=== PATIENT | male | born 1980 | race Caucasian/White ===

== ENCOUNTER 2017-03-27 21:17 | Emergency (ER) | payer OTHER ==
[2017-03-27 21:28] VITALS: BP 126/89; PULSE 79; TEMP 98.3; O2SAT 97
[2017-03-27] MEDS ORDERED: Amoxicillin-Clav 875-125 mg Tab PO STA (21:35)
--- NOTE | 2017-03-27 21:39 | C.PDOC ---
History Of Present Illness Patient reports 1 month history of persistent nasal congestion. Patient reports that the symptoms worsened and is now associated with facial pressure. Patient tried OTN medications without relief. Denies fever, trauma, vomiting, neck pain , SOB, chest pain. Time Seen by Provider: 03/27/17 21:27 Chief Complaint (Nursing): Cough, Cold, Congestion History Per: Patient History/Exam Limitations: no limitations Onset/Duration Of Symptoms: Persistent Current Symptoms Are (Timing): Still Present Severity: Mild Past Medical History Vital Signs: Last Vital Signs Temp 98.3 F 03/27/17 21:22 Pulse 79 03/27/17 21:22 Resp 22 03/27/17 21:22 BP 126/89 03/27/17 21:22 Pulse Ox 97 03/27/17 21:22 - Medical History PMH: No Chronic Diseases Surgical History: No Surg Hx Family History: States: No Known Family Hx - Social History Hx Alcohol Use: Yes Hx Substance Use: No - Immunization History Hx Tetanus Toxoid Vaccination: Yes Hx Influenza Vaccination: No Hx Pneumococcal Vaccination: Yes Review Of Systems Except As Marked, All Systems Reviewed And Found Negative. Physical Exam - Physical Exam Appears: Well, No Acute Distress Skin: Normal Color, Warm Head: Atraumatic, Normacephalic Eye(s): bilateral: Normal Inspection, PERRL, EOMI Ear(s): Bilateral: Normal Nose: Other ((+) bilateral maxillary sinus tenderness and minimal swelling) Oral Mucosa: Moist Tongue: Normal Appearing Lips: Normal Appearing Throat: No Erythema, No Exudate Neck: Normal ROM, Supple Chest: Symmetrical, No Tenderness Cardiovascular: Rhythm Regular, No Friction Rub, No Murmur Respiratory: Normal Breath Sounds, No Rhonchi Back: Normal Inspection Extremity: Normal ROM, No Swelling Neurological/Psych: Oriented x3, Normal Speech, Normal Cranial Nerves Gait: Steady ED Course And Treatment O2 Sat by Pulse Oximetry: 97 (on RA) Pulse Ox Interpretation: Normal Disposition - Disposition Referrals: at [facility] [Outside] Disposition: HOME/ ROUTINE Disposition Time: 21:36 Condition: GOOD Additional Instructions: Follow up with the medical doctor within 1-2 days, Return if worsened Prescriptions: Amoxicillin/Clavulanate [Augmentin 875 MG-125 MG] 1 tab PO BID #14 tab Loratadine/Pseudoephedrine [Claritin-D 24 Hour Tablet] 1 each PO DAILY #10 tab.er.24h predniSONE [Prednisone] 20 mg PO BID #10 tab Instructions: Sinusitis (ED) Print Language: PASHTO - Clinical Impression Clinical Impression: Sinusitis
[2017-03-27] MEDS ORDERED: Amoxicillin-Clav 875-125 mg Tab PO ONE (21:40)
[2017-03-27 21:46] VITALS: RESP 20
== END 2017-03-27 21:45 | disposition home or self-care (01) ==
LOC: C.ER 21:17
DX: J32.9 Chronic sinusitis, unspecified (principal)

== ENCOUNTER 2017-10-17 20:57 | Emergency (ER) | payer OTHER ==
[2017-10-17 21:19] VITALS: BP 123/77; PULSE 52; RESP 20; TEMP 97.7; O2SAT 100
[2017-10-17] MEDS ORDERED: Fluorescein 1 mg Ophthalmic Strip OD ONE (21:20)
[2017-10-17] MEDS ORDERED: Tetracaine 0.5% Ophth 2 ML BOTTLE OU ONE (21:20)
[2017-10-17] MEDS ORDERED: Fluorescein 1 mg Ophthalmic Strip ONE (21:24)
[2017-10-17] MEDS ORDERED: Tetracaine 0.5% Ophth (OR ONLY) ONE (21:24)
--- NOTE | 2017-10-17 21:49 | C.PDOC ---
History Of Present Illness 37 year old male presents to the ED for evaluation of right eye pain that started yesterday. 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 Patient reports he put some OTC eye soothing drops with no relief to his symptoms. Patient denies change in vision, discharge from his eye, headache, fever. Time Seen by Provider: 10/17/17 21:12 Chief Complaint (Nursing): Eye Problem History Per: Patient, Past[employer] History/Exam Limitations: no limitations Onset/Duration Of Symptoms: Days Current Symptoms Are (Timing): Still Present Injury To Eye?: No Quality: "Pain" Wears Contact Lens?: No Associated Symptoms: Pain Recent travel outside of the [place]: No Additional History Per: Patient Past Medical History Reviewed: Historical Data, Nursing Documentation, Vital Signs Vital Signs: Last Vital Signs Temp 97.7 F 10/17/17 21:17 Pulse 52 L 10/17/17 21:17 Resp 20 10/17/17 22:02 BP 123/77 10/17/17 21:17 Pulse Ox 100 10/17/17 23:26 - Medical History PMH: Hypercholesterolemia Surgical History: No Surg Hx Family History: States: Unknown Family Hx - Social History Hx Alcohol Use: Yes Hx Substance Use: No - Immunization History Hx Tetanus Toxoid Vaccination: Yes Hx Influenza Vaccination: No Hx Pneumococcal Vaccination: Yes Review Of Systems Constitutional: Negative for: Fever, Chills Eyes: Positive for: Pain. Negative for: Vision Change Cardiovascular: Negative for: Chest Pain Respiratory: Negative for: Cough, Shortness of Breath Gastrointestinal: Negative for: Nausea, Vomiting, Abdominal Pain Skin: Negative for: Rash Neurological: Negative for: Weakness, Numbness, Headache Physical Exam - Physical Exam Appears: Non-toxic, No Acute Distress Skin: Normal Color, Warm, Dry Head: Atraumatic, Normacephalic Eye(s): bilateral: PERRL, EOMI, right: Other (Conjuctical injection, negative fluoroscience uptake, no foreign bodies, negatrive eyelid inversion), left: Normal Inspection Nose: No Discharge, No Deformity Neck: Normal ROM, Supple Chest: Symmetrical Respiratory: No Accessory Muscle Use Neurological/Psych: Oriented x3, Normal Speech, Normal Cognition Gait: Steady ED Course And Treatment O2 Sat by Pulse Oximetry: 100 (On RA) Pulse Ox Interpretation: Normal Progress Note: Plan: -Fluorescin 1 mg OD. -Tetracaine 0.5% Ophth soln. Patient was d/c and advised to follow up with an buttonhole marker tomorrow for further evaluation. Case was discussed with Dr. Muñiz who agreed wuth plan and treatment. Disposition - Disposition Referrals: Isaiah Mccarty [Staff Provider] - Disposition: HOME/ ROUTINE Disposition Time: 21:46 Condition: STABLE Additional Instructions: Follow up with the eye doctor tomorrow. Prescriptions: Tobramycin 0.3% [Tobramycin 5 Ml] 1 drop OP Q4 #1 bottle Instructions: Corneal Abrasion (ED) Forms: [employer] (Yoruba) Print Language: MONGOLIAN - Clinical Impression Clinical Impression: Eye pain - PA / DIETETIC TECH / Resident Statement MD/DO has reviewed & agrees with the documentation as recorded. - Scribe Statement The provider has reviewed the documentation as recorded by the Scribe Barak Toussaint All medical record entries made by the Scribe were at my direction and personally dictated by me. I have reviewed the chart and agree that the record accurately reflects my personal performance of the history, physical exam, medical decision making, and the department course for this patient. I have also personally directed, reviewed, and agree with the discharge instructions and disposition.
== END 2017-10-17 22:02 | disposition home or self-care (01) ==
LOC: C.ER 20:57
DX: H57.11 Ocular pain, right eye (principal); E78.00 Pure hypercholesterolemia, unspecified

== ENCOUNTER 2017-11-10 12:39 | Emergency (ER) | payer OTHER ==
[2017-11-10 12:47] VITALS: TEMP 98.9; O2SAT 98
[2017-11-10] MEDS ORDERED: Naproxen 550 mg Tab PO STA (13:27)
[2017-11-10] MEDS ORDERED: Naproxen 550 mg Tab PO ONE (13:36)
--- NOTE | 2017-11-10 14:13 | C.PDOC ---
History Of Present Illness 37-year-old male, presents to the emergency department with complaints of bodyaches, fever and chills that started a few days ago. Patient notes taking a dose of Motrin last night with minimal relief. Denies nausea/vomiting, or any other associated symptoms. No other complaints at this time. Time Seen by Provider: 11/10/17 12:53 Chief Complaint (Nursing): Flu-like Symptoms History Per: Patient History/Exam Limitations: no limitations Onset/Duration Of Symptoms: Days Current Symptoms Are (Timing): Still Present Past Medical History Reviewed: Historical Data, Nursing Documentation, Vital Signs Vital Signs: Last Vital Signs Temp 98.9 F 11/10/17 12:44 Pulse 84 11/10/17 14:46 Resp 16 11/10/17 14:46 BP 112/68 11/10/17 14:46 Pulse Ox 98 11/10/17 16:50 - Medical History PMH: Hypercholesterolemia Family History: States: No Known Family Hx - Social History Hx Alcohol Use: Yes Hx Substance Use: No - Immunization History Hx Tetanus Toxoid Vaccination: Yes Hx Influenza Vaccination: No Hx Pneumococcal Vaccination: Yes Review Of Systems Except As Marked, All Systems Reviewed And Found Negative. Constitutional: Positive for: Fever, Chills, Malaise Cardiovascular: Negative for: Chest Pain Respiratory: Negative for: Shortness of Breath Gastrointestinal: Negative for: Vomiting Musculoskeletal: Negative for: Back Pain Neurological: Negative for: Weakness, Numbness, Headache, Dizziness Physical Exam - Physical Exam Appears: Non-toxic, No Acute Distress Skin: Warm, Dry, No Rash Head: Atraumatic, Normacephalic Eye(s): bilateral: Normal Inspection, PERRL Nose: Normal Oral Mucosa: Moist Lips: Normal Appearing Neck: Normal ROM, Supple Cardiovascular: Rhythm Regular, No Murmur Respiratory: Normal Breath Sounds, No Decreased Breath Sounds, No Rales, No Rhonchi, No Wheezing Extremity: Normal ROM Neurological/Psych: Oriented x3, Normal Speech ED Course And Treatment O2 Sat by Pulse Oximetry: 98 Progress Note: Influenza AB ordered and reviewed. Patient treated with Tamiflu, Tessalon and Naproxen. Disposition Counseled Patient/Family Regarding: Studies Performed, Diagnosis, Need For Followup, Rx Given - Disposition Referrals: [facility] at [facility] [Outside] Disposition: HOME/ ROUTINE Disposition Time: 14:15 Condition: STABLE Additional Instructions: CAITLIN ABUNDANTE LQUIDO Y DESCANSE USE MEDICAMENTOS SEGN LO INDICADO REGRESE AL RUTHIE DE EMERGENCIA SI LOS SNTOMAS EMPEORAN Prescriptions: Benzonatate [Tessalon Perles] 100 mg PO BID PRN #15 sgl PRN Reason: Cough Naproxen 375 mg PO BID PRN #20 tablet PRN Reason: pain Oseltamivir Phosphate [Tamiflu] 75 mg PO BID #10 capsule Instructions: Influenza (ED) Forms: [employer] (Filipino), Work Excuse Print Language: ICELANDIC - Clinical Impression Clinical Impression: Influenza A - Scribe Statement The provider has reviewed the documentation as recorded by the Scribe (Kami Farah) All medical record entries made by the Scribe were at my direction and personally dictated by me. I have reviewed the chart and agree that the record accurately reflects my personal performance of the history, physical exam, medical decision making, and the department course for this patient. I have also personally directed, reviewed, and agree with the discharge instructions and disposition.
[2017-11-10 14:47] VITALS: BP 112/68; PULSE 84; RESP 16
== END 2017-11-10 14:46 | disposition home or self-care (01) ==
LOC: C.ER 12:39
DX: J10.1 Influenza due to other identified influenza virus with other respiratory manifestations (principal); E78.00 Pure hypercholesterolemia, unspecified

== ENCOUNTER 2018-02-23 08:43 | Emergency (ER) | payer OTHER ==
[2018-02-23 08:43] VITALS: BMI 28.3
[2018-02-23 08:50] VITALS: BP 124/78; PULSE 63; RESP 20; TEMP 97.9; O2SAT 99
[2018-02-23] MEDS ORDERED: Naproxen 550 mg Tab PO STA (09:15)
[2018-02-23] MEDS ORDERED: Naproxen 550 mg Tab PO ONE (09:27)
--- NOTE | 2018-02-23 09:34 | C.PDOC ---
History Of Present Illness 38 year old male presents to the emergency department with complaints of left proximal forearm pain that is worse with movement, persistent for approximately one month. Patient states that in the past week his pain began to radiate to his left shoulder. 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 Time Seen by Provider: 02/23/18 09:07 Chief Complaint (Nursing): Upper Extremity Problem/Injury History Per: Patient History/Exam Limitations: no limitations Onset/Duration Of Symptoms: Other (1 month) Current Symptoms Are (Timing): Still Present Quality: "Pain" Exacerbating Factor(s): Movement Past Medical History Reviewed: Historical Data, Nursing Documentation, Vital Signs Vital Signs: Last Vital Signs Temp 97.9 F 02/23/18 08:47 Pulse 63 02/23/18 08:47 Resp 20 02/23/18 08:47 BP 124/78 02/23/18 08:47 Pulse Ox 99 02/23/18 09:38 - Medical History PMH: Hypercholesterolemia Surgical History: No Surg Hx Family History: States: No Known Family Hx - Social History Hx Alcohol Use: Yes Hx Substance Use: No - Immunization History Hx Tetanus Toxoid Vaccination: Yes Hx Influenza Vaccination: Yes Hx Pneumococcal Vaccination: Yes Review Of Systems Musculoskeletal: Positive for: Shoulder Pain, Arm Pain Physical Exam - Physical Exam Appears: Non-toxic, No Acute Distress (comfortable) Extremity: Normal ROM (at left elbow, wrist, and shoulder.), Tenderness (left lateral forearm tender to palpation), No Deformity, No Swelling, No Other (rash) Pulses: Left Radial: Normal Neurological/Psych: Oriented x3, Normal Speech, Normal Motor, Normal Sensation, Normal Reflexes ED Course And Treatment O2 Sat by Pulse Oximetry: 99 (RA) Pulse Ox Interpretation: Normal - Other Rad XR Elbow Left X-Ray: Interpreted by Me, Viewed By Me, Read By Radiologist Interpretation: No acute fracture or dislocations. IMPRESSION: Unremarkable radiographs of the left elbow. Progress Note: Plan: XR Left Elbow 3 Views. Anaprox DS 550mg PO. Patient discharged with a prescription for pain medications, and advised to follow up with an orthopedic physician. Disposition Counseled Patient/Family Regarding: Studies Performed, Diagnosis, Need For Followup, Rx Given - Disposition Referrals: [facility] at [facility] [Outside] [facility] [place] [Outside] Edson Potter III, MD [Staff Provider] - Disposition: HOME/ ROUTINE Disposition Time: 09:35 Condition: STABLE Additional Instructions: FOLLOW UP WITH ORTHOPEDICS WITHIN 1 WEEK USE MEDICATION FOR PAIN NEEDED, TAKE WITH FOOD REST THE ARM MUCH POSSIBLE RETURN TO EMERGENCY ROOM IF SYMPTOMS WORSEN SEGUIMIENTO CON ORTOPEDIA DENTRO DE 1 SEMANA USE MEDICAMENTO PARA EL DOLOR SEGN SEA NECESARIO, TMELO CON ALIMENTOS DESCANSE EL BRAZO LO MS POSIBLE REGRESE AL RUTHIE DE EMERGENCIA SI LOS SNTOMAS EMPEORAN Prescriptions: Naproxen 375 mg PO BID PRN #20 tablet PRN Reason: pain Instructions: Lateral Epicondylitis (DC), Lateral Epicondylitis Exercises Forms: [employer] (Azeri) Print Language: OCCITAN - POA Present On Arrival: None - Clinical Impression Clinical Impression: Left forearm pain, Lateral epicondylitis - Scribe Statement The provider has reviewed the documentation as recorded by the Scribe ([email or web address]) Provider Attestation: All medical record entries made by the Scribe were at my direction and personally dictated by me. I have reviewed the chart and agree that the record accurately reflects my personal performance of the history, physical exam, medical decision making, and the department course for this patient. I have also personally directed, reviewed, and agree with the discharge instructions and disposition.
--- NOTE | 2018-02-23 10:39 | RAD ---
PROCEDURE: Radiographs of the left elbow. . HISTORY: left elbow/medial forearm pain COMPARISON: No prior. FINDINGS: BONES: Normal. No fracture. JOINTS: Normal. No osteoarthritis. SOFT TISSUES: Normal. JOINT EFFUSION: None. OTHER FINDINGS: None IMPRESSION: Unremarkable radiographs of the left elbow.
== END 2018-02-23 09:42 | disposition home or self-care (01) ==
LOC: C.ER 08:43
DX: M77.12 Lateral epicondylitis, left elbow (principal); M79.632 Pain in left forearm

== ENCOUNTER 2018-02-26 14:28 | Emergency (ER) | payer OTHER ==
[2018-02-26 14:28] VITALS: BMI 28.3
--- NOTE | 2018-02-26 15:45 | C.PDOC ---
History Of Present Illness The patient is a 37 year old male who was recently evaluated in this ED for elbow pain and given prescription for Naproxen. Four days ago, patient states he was at a restaurant and was trying to hold in his stool so he wouldn't have to go to the bathroom. The next morning, patient developed left lower quadrant abdominal pain and had bright red bloody stool. Patient describes his pain as sharp, constant, and states that it is worse with movement. He is able to eat/ drink without issues and denies fever, chills, dysuria, hematuria, hemorrhoids or rectal pain. Time Seen by Provider: 02/26/18 15:22 Chief Complaint (Nursing): Abdominal Pain History Per: Patient History/Exam Limitations: no limitations Onset/Duration Of Symptoms: Days (3), Persistent Current Symptoms Are (Timing): Still Present Location Of Pain/Discomfort: LLQ Quality Of Discomfort: "Pain" Associated Symptoms: denies: Fever, Chills, Urinary Symptoms Exacerbating Factors: Movement Additional History Per: Patient Past Medical History Reviewed: Historical Data, Nursing Documentation, Vital Signs Vital Signs: Last Vital Signs Temp 98.6 F 02/26/18 14:39 Pulse 65 02/26/18 14:39 Resp 18 02/26/18 14:39 BP 112/74 02/26/18 14:39 Pulse Ox 100 02/26/18 20:14 - Medical History PMH: Hypercholesterolemia Surgical History: No Surg Hx Family History: States: Unknown Family Hx - Social History Hx Alcohol Use: Yes Hx Substance Use: No - Immunization History Hx Tetanus Toxoid Vaccination: Yes Hx Influenza Vaccination: Yes Hx Pneumococcal Vaccination: Yes Review Of Systems Gastrointestinal: Positive for: Abdominal Pain (left lower quadrant ), Other ( bright red bloody stool ) Genitourinary: Negative for: Dysuria, Hematuria Physical Exam - Physical Exam Appears: Non-toxic, No Acute Distress Skin: Normal Color, Warm, Dry Head: Atraumatic, Normacephalic Eye(s): bilateral: Normal Inspection Oral Mucosa: Moist Neck: Supple Chest: Symmetrical, No Deformity, No Tenderness Cardiovascular: Rhythm Regular, No Murmur Respiratory: Normal Breath Sounds, No Rales, No Rhonchi, No Wheezing Gastrointestinal/Abdominal: Soft, Tenderness (to left and right lower quadrants ), No Guarding, No Rebound Extremity: Normal ROM, Capillary Refill (less than 2 seconds ) Neurological/Psych: Oriented x3, Normal Speech, Normal Cognition ED Course And Treatment - Laboratory Results Result Diagrams: 02/26/18 16:16 02/26/18 16:16 Lab Interpretation: Normal O2 Sat by Pulse Oximetry: 100 (on RA) Pulse Ox Interpretation: Normal - CT Scan/US CT A/P Other Rad Studies (CT/US): Interpreted By Me, Read By Radiologist, Radiology Report Reviewed CT/US Interpretation: EXAM: CT Abdomen and Pelvis With Intravenous Contrast. EXAM DATE/TIME: 02/26/2018 3:40 PM. CLINICAL HISTORY: 37 years old, male; Pain ; Abdominal pain; Localized; Lower; Additional info: Abd pain. TECHNIQUE: Axial computed tomography images of the abdomen and pelvis with intravenous contrast. All CT. scans at this facility use one or more dose reduction techniques, viz.: automated exposure control;. ma/kV adjustment per patient size (including targeted exams where dose is matched to indication; i.e. head) ; or iterative reconstruction technique. Coronal and sagittal reformatted images were created and reviewed. CONTRAST: 100 mL of omnipaque 300 administered intravenously. COMPARISON: There are no prior studies for comparison. FINDINGS: Lung bases: The heart is mildly enlarged. There is dependent atelectasis. There is a calcified. granuloma in the right middle lobe. ABDOMEN: Liver: There is fatty infiltration of the liver Gallbladder and bile ducts: unremarkable. Pancreas: unremarkable. Spleen: Spleen is unremarkable. There is an accessory spleen in the left upper quadrant. Adrenals : unremarkable. Kidneys and ureters: There are small bilateral nonobstructing renal stones.Kidneys and ureters are. otherwise unremarkable. Stomach and bowel: Stomach is almost completely empty. Rotation is normal. There are mildly. distended jejunal loops in the left upper quadrant. There is contrast in the majority of the small bowel. There is no small bowel obstruction. Ileocecal region is unremarkable. Appendix and terminal ileum. are unremarkable.There is mild colonic wall thickening at the hepatic flexure. There is minimal. thickening in the distal transverse colon. There is mild descending colon wall thickening. There is. extensive sigmoid wall thickening extending into the rectum. There is mild bowel wall enhancement. and inflammation in pericolonic fat. There is scattered diverticulosis. PELVIS: Appendix: See stomach and bowel. Bladder: unremarkable. Reproductive: Seminal vesicles and prostate are unremarkable. ABDOMEN and PELVIS: Intraperitoneal space: There is no free air or free fluid. Bones/joints: There are no acute osseous abnormalities. There is minimal spondylosis. There is a. bone island in the left femur. Soft tissues: unremarkable. Vasculature: Vascular structures are unremarkable. Lymph nodes: There is no pathologic adenopathy. IMPRESSION: Colitis; mild cardiomegaly Progress Note: Bloodwork, urinalysis, CT A/P ordered and reviewed. Morphine IVP and IV Fluids administered. Reevaluation Time: 20:18 Reassessment Condition: Improved (Patient remains comfortable in ED.) Disposition Counseled Patient/Family Regarding: Studies Performed, Diagnosis, Need For Followup, Rx Given - Disposition Referrals: [facility] [Outside] Disposition: HOME/ ROUTINE Disposition Time: 20:19 Condition: IMPROVED Prescriptions: Ciprofloxacin [Cipro] 1 tab PO BID #14 tab Instructions: Bloody Stools, Adult (DC) Forms: [employer] (Tamazight) Print Language: CYPRIOT - Clinical Impression Clinical Impression: Colitis - Scribe Statement The provider has reviewed the documentation as recorded by the Scribe (Yasmine Cervantes) Provider Attestation: All medical record entries made by the Scribe were at my direction and personally dictated by me. I have reviewed the chart and agree that the record accurately reflects my personal performance of the history, physical exam, medical decision making, and the department course for this patient. I have also personally directed, reviewed, and agree with the discharge instructions and disposition.
[2018-02-26 16:19] LABS: BASO % 0.6 % (0.0-2.0); EOS % 0.4 % (0.0-4.0); HEMOGLOBIN 13.1 g/dL (12.0-18.0); LYMPH # 1.9 K/uL (1.0-4.3); LYMPH % 29.4 % (20.0-40.0); MEAN CELL VOLUME 85.4 fL (80.0-94.0); MEAN CORPUSCULAR HEMOGLOBIN 29.2 pg (27.0-31.0); MEAN CORPUSCULAR HGB CONC 34.2 g/dL (33.0-37.0); MEAN PLATELET VOLUME 8.5 fL (7.2-11.7); MONO # 0.5 K/uL (0.0-0.8); MONO % 8.6 % (0.0-10.0); NEUT # 3.9 K/uL (1.8-7.0); RBC 4.48 Mil/uL (4.40-5.90); RED CELL DISTRIBUTION WIDTH 13.4 % (11.5-14.5); WHITE BLOOD COUNT 6.3 K/uL (4.8-10.8)
[2018-02-26] MEDS ORDERED: Morphine 4 MG/ML VIAL ONE (16:43)
[2018-02-26] MEDS ORDERED: Sodium Chloride 0.9% 1,000 ML ONE (16:43)
[2018-02-26] MEDS: Sodium Chloride 0.9% 1,000 ML IV ONE ×2 (16:48→18:06)
[2018-02-26 16:53] LABS: ALB/GLOB RATIO 1.2 (1.0-2.1); ALT/SGPT 26 U/L (21-72); AST/SGOT 47 U/L (17-59); BLOOD UREA NITROGEN 14 mg/dL (9-20); CALCIUM 8.9 mg/dl (8.6-10.4); GFR AFRICAN-AMERICAN > 60; GFR NON-AFRICAN AMERICAN > 60
[2018-02-26 16:56] LABS: URINE BACTERIA OCC (<OCC); URINE BILIRUBIN NEGATIVE (NEGATIVE); URINE BLOOD NEGATIVE (NEGATIVE); URINE CLARITY Hazy (Clear); URINE COLOR Amber (YELLOW); URINE GLUCOSE (UA) NORMAL (Normal); URINE LEUKOCYTE ESTERASE NEG Leu/uL (Negative); URINE PROTEIN 2+ mg/dL (NEGATIVE)
[2018-02-26] MEDS ORDERED: Iohexol 240 (50 ml) ONE (18:03)
[2018-02-26] MEDS: Iohexol 240 (50 ml) PO ONE (18:07)
[2018-02-26] MEDS ORDERED: Iohexol 300 100 ML IJ ONE (18:08)
--- NOTE | 2018-02-26 20:10 | CT ---
EXAM: CT Abdomen and Pelvis With Intravenous Contrast EXAM DATE/TIME: 02/26/2018 3:40 PM CLINICAL HISTORY: 37 years old, male; Pain; Abdominal pain; Localized; Lower; Additional info: Abd pain TECHNIQUE: Axial computed tomography images of the abdomen and pelvis with intravenous contrast. All CT scans at this facility use one or more dose reduction techniques, viz.: automated exposure control; ma/kV adjustment per patient size (including targeted exams where dose is matched to indication; i.e. head); or iterative reconstruction technique. Coronal and sagittal reformatted images were created and reviewed. CONTRAST: 100 mL of omnipaque 300 administered intravenously. COMPARISON: There are no prior studies for comparison. FINDINGS: Lung bases: The heart is mildly enlarged. There is dependent atelectasis. There is a calcified granuloma in the right middle lobe ABDOMEN: Liver: There is fatty infiltration of the liver. Gallbladder and bile ducts: unremarkable Pancreas: unremarkable Spleen: Spleen is unremarkable. There is an accessory spleen in the left upper quadrant. Adrenals: unremarkable Kidneys and ureters: There are small bilateral nonobstructing renal stones.Kidneys and ureters are otherwise unremarkable. Stomach and bowel: Stomach is almost completely empty. Rotation is normal. There are mildly distended jejunal loops in the left upper quadrant. There is contrast in the majority of the small bowel. There is no small bowel obstruction. Ileocecal region is unremarkable. Appendix and terminal ileum are unremarkable.There is mild colonic wall thickening at the hepatic flexure. There is minimal thickening in the distal transverse colon. There is mild descending colon wall thickening. There is extensive sigmoid wall thickening extending into the rectum. There is mild bowel wall enhancement and inflammation in pericolonic fat. There is scattered diverticulosis PELVIS: Appendix: See stomach and bowel Bladder: unremarkable Reproductive: Seminal vesicles and prostate are unremarkable. ABDOMEN and PELVIS: Intraperitoneal space: There is no free air or free fluid. Bones/joints: There are no acute osseous abnormalities. There is minimal spondylosis. There is a bone island in the left femur. Soft tissues: unremarkable Vasculature: Vascular structures are unremarkable. Lymph nodes: There is no pathologic adenopathy. IMPRESSION: Colitis; mild cardiomegaly
[2018-02-26 20:40] VITALS: BP 91/52; PULSE 59; RESP 20; TEMP 98.2; O2SAT 99
== END 2018-02-26 20:41 | disposition home or self-care (01) ==
LOC: C.ER 14:28
DX: K52.9 Noninfective gastroenteritis and colitis, unspecified (principal)
CPT/HCPCS: 74177; 80053; 81001; 85025; 96361; 96374; 99284; J2270; J7040; Q9966; Q9967

== ENCOUNTER 2019-02-11 06:23 | Emergency (ER) | payer OTHER ==
[2019-02-11 06:23] VITALS: BMI 28.3
[2019-02-11] MEDS ORDERED: Sodium Chloride 0.9% 1,000 ML ONE (07:48)
[2019-02-11] MEDS: Sodium Chloride 0.9% 1,000 ML IV STA (07:53)
[2019-02-11 08:08] LABS: BASO # 0.1 K/uL (0.0-0.2); BASO % 0.5 % (0.0-2.0); EOS # 0.1 K/uL (0.0-0.7); EOS % 0.6 % (0.0-4.0); HEMOGLOBIN 14.3 g/dL (12.0-18.0); LYMPH # 1.3 K/uL (1.0-4.3); LYMPH % 12.7 % (20.0-40.0); MEAN CELL VOLUME 87.2 fL (80.0-94.0); MEAN CORPUSCULAR HEMOGLOBIN 29.8 pg (27.0-31.0); MEAN CORPUSCULAR HGB CONC 34.1 g/dL (33.0-37.0); MEAN PLATELET VOLUME 8.9 fL (7.2-11.7); MONO # 0.6 K/uL (0.0-0.8); MONO % 6.1 % (0.0-10.0); NEUT % 80.1 % (50.0-75.0); RBC 4.81 Mil/uL (4.40-5.90); RED CELL DISTRIBUTION WIDTH 13.3 % (11.5-14.5)
[2019-02-11 08:15] LABS: INR 1.4; PROTHROMBIN TIME 14.9 SECONDS (9.7-12.2)
[2019-02-11 08:23] LABS: ALB/GLOB RATIO 1.5 (1.0-2.1); ALBUMIN 4.3 g/dL (3.5-5.0); ALT/SGPT 17 U/L (21-72); AST/SGOT 30 U/L (17-59); BLOOD UREA NITROGEN 22 mg/dL (9-20); CALCIUM 9.3 mg/dl (8.6-10.4); GFR NON-AFRICAN AMERICAN > 60
[2019-02-11 09:13] VITALS: O2SAT 100
[2019-02-11] MEDS ORDERED: Absorbable Gelatin Sponge Size 12-7 ONE (10:38)
--- NOTE | 2019-02-11 11:13 | C.PDOC ---
History Of Present Illness 38-year-old male presents to the ED for evaluation of persistent bleeding after undergoing tooth extraction yesterday. Patient states he underwent extraction of his tooth #2 at [facility] by Dr. Yanet Cervantes yesterday. Patient ex perienced bleeding from the socket last night, and tried placing gauze and applying pressure to the area without improvement. Patient presents to the ED this morning because he has had persistent bleeding and now with some clots. Patient denies fever, chills. Dentist: Yanet [facility]to[facility] [address] [place] [address] Time Seen by Provider: 02/11/19 07:27 Chief Complaint (Nursing): Dental Pain History Per: Patient History/Exam Limitations: no limitations Onset/Duration Of Symptoms: Hrs, Persistent Current Symptoms Are (Timing): Still Present Additional History Per: Patient Past Medical History Reviewed: Historical Data, Nursing Documentation, Vital Signs Vital Signs: Last Vital Signs Temp 98.3 F 02/11/19 08:57 Pulse 78 02/11/19 08:57 Resp 22 02/11/19 08:57 BP 118/74 02/11/19 08:57 Pulse Ox 100 02/11/19 08:57 - Medical History PMH: Hypercholesterolemia Surgical History: No Surg Hx Family History: States: Unknown Family Hx - Social History Hx Alcohol Use: Yes Hx Substance Use: No - Immunization History Hx Tetanus Toxoid Vaccination: Yes (6 mos. ago) Hx Influenza Vaccination: No Hx Pneumococcal Vaccination: No Review Of Systems Constitutional: Negative for: Fever, Chills ENT: Positive for: Other (persistent bleeding from socket after extraction of tooth #2) Physical Exam - Physical Exam Appears: Non-toxic, No Acute Distress Skin: Normal Color, Warm, Dry Head: Atraumatic, Normacephalic Oral Mucosa: Moist Teeth: Other (right upper second molar socket with active bleeding ) Neck: Supple Chest: Symmetrical, No Deformity Cardiovascular: Rhythm Regular Respiratory: Normal Breath Sounds, No Rales, No Rhonchi, No Wheezing Extremity: Normal ROM Neurological/Psych: Oriented x3, Normal Speech, Normal Cognition ED Course And Treatment - Laboratory Results Result Diagrams: 02/11/19 07:55 02/11/19 07:55 Lab Results: PT 14.9 SECONDS (9.7-12.2) H 02/11/19 07:55 INR 1.4 02/11/19 07:55 APTT 41 SECONDS (21-34) H 02/11/19 07:55 Total Bilirubin 0.5 mg/dL (0.2-1.3) 02/11/19 07:55 AST 30 U/L (17-59) 02/11/19 07:55 ALT 17 U/L (21-72) L D 02/11/19 07:55 Alkaline Phosphatase 86 U/L (38-126) 02/11/19 07:55 Total Protein 7.2 g/dL (6.3-8.3) 02/11/19 07:55 Albumin 4.3 g/dL (3.5-5.0) 02/11/19 07:55 Globulin 2.9 gm/dL (2.2-3.9) 02/11/19 07:55 Albumin/Globulin Ratio 1.5 (1.0-2.1) 02/11/19 07:55 O2 Sat by Pulse Oximetry: 100 (on RA) Pulse Ox Interpretation: Normal Progress Note: Gauze and pressure applied to the socket, without improvement in bleeding. Bloodwork ordered and reviewed. IV Fluids given. [facility] office was called at 10am (opening time). Case was discussed with Dr. Wu, who advises to apply Gel Foam to the socket and observe the patient in the ED. Advises to instruct patient to follow up in the office immediately if the bleeding does not resolve. . Gel Foam applied. Will observe the patient. On re-evaluation bleeding subsideed, but still oozing blood. Patient was instructed to go to his Dentist immediately after discharge. Disposition - Disposition Disposition: HOME/ ROUTINE Disposition Time: 11:50 Condition: FAIR Additional Instructions: Follow up with your dentist right away after discharge. I spoke with and she is expecting you to come. Return to ED if feel worse. Instructions: Tooth Extraction (DC) Forms: [facility] (Sen[place]e), Work Excuse - Clinical Impression Clinical Impression: Status post tooth extraction, Gingival hemorrhage - PA / [employer] / Resident Statement MD/DO has reviewed & agrees with the documentation as recorded. - Scribe Statement The provider has reviewed the documentation as recorded by the Scribe (Yasmine Cervantes) All medical record entries made by the Scribe were at my direction and personally dictated by me. I have reviewed the chart and agree that the record accurately reflects my personal performance of the history, physical exam, medical decision making, and the department course for this patient. I have also personally directed, reviewed, and agree with the discharge instructions and disposition.
[2019-02-11] MEDS: Absorbable Gelatin Sponge Size 12-7 MM STA (11:15)
[2019-02-11 11:56] VITALS: BP 110/74; PULSE 77; RESP 16; TEMP 98.7
== END 2019-02-11 12:07 | disposition home or self-care (01) ==
LOC: C.ER 06:23
DX: K91.840 Postprocedural hemorrhage of a digestive system organ or structure following a digestive system procedure (principal); E78.00 Pure hypercholesterolemia, unspecified
CPT/HCPCS: 80053; 85025; 85610; 85730; 96360; 99284; J7030